=== PATIENT | male | born 1995 | race Caucasian/White ===

== ENCOUNTER 2023-02-24 16:48 | Emergency (ER) | payer OTHER ==
[2023-02-24 16:57] VITALS: BP 143/85; O2SAT 98
[2023-02-24] MEDS ORDERED: KETOROLAC 0.45% OPHTH DROPS EACHEYE ONE (17:05)
--- NOTE | 2023-02-24 17:06 | ED Physician Documentation ---
PD HPI OPHTHO - Stated complaint Stated Complaint: BLURRY VISION/BURNING EYES - Chief complaint Chief Complaint: Heent - History obtained from History obtained from: Patient - Additional information Additional information: He developed right eye pain 3 days ago and redness. Went to urgent care and was subsequently sent over to Dr. Chandler, the nursing informatics clinical analyst in [place] and diagnosed with viral conjunctivitis. Pain is more severe and he is losing sleep because of it. His vision is not affected. He is having clear drainage. Not a contact lens wear. PD PAST MEDICAL HISTORY - Past Medical History Past Medical History: No Cardiovascular: None Respiratory: None Neuro: None Endocrine/Autoimmune: None GI: None : None HEENT: None Psych: None Musculoskeletal: None Derm: None - Past Surgical History Past Surgical History: No - Present Medications Home Medications: Ambulatory Orders Medication Instructions Recorded Confirmed HYDROcod/ACETAM 5/325 [Florien 5/325] 1 - 2 tablet PO Q6H PRN 02/24/23 02/24/23 Ofloxacin 0.3% Ophth Drops 1 drops EACHEYE Q4H 02/24/23 02/24/23 [Ocuflox 0.3% Ophth Drops] - Allergies Allergies/Adverse Reactions: Allergies Allergy/AdvReac Type Severity Reaction Status Date / Time No Known Drug Allergies Allergy Verified 02/24/23 16:53 - Social History Does the pt smoke?: No Smoking Status: Never smoker Does the pt drink ETOH?: No Does the pt have substance abuse?: No - Immunizations Immunizations are current?: Yes - POLST Patient has POLST: No PD ED PE NORMAL - Vitals Vital signs reviewed: Yes - General General: Alert and oriented X 3, No acute distress - HEENT HEENT: PERRL, EOMI, Other (Significant bilateral conjunctivitis without purulent drainage. Anterior chambers are clear) - Neck Neck: Supple, no meningeal sign, No bony TTP - Neuro Neuro: Alert and oriented X 3, Normal speech Results - Vitals Vitals: Vital Signs - 24 hr 02/24/23 16:53 Temperature 36.5 C Heart Rate 67 Respiratory 16 Rate Blood Pressure 143/85 H O2 Saturation 98 Oxygen O2 Source Room air PD Medical Decision Making - ED course ED course: We do not have an appropriate topical agents for viral conjunctivitis in the hospital and all the pharmacies are closed. He was advised that he can buy ketotifen [id number]. Departure - Departure Disposition: 01 Home, Self Care Clinical Impression: Viral conjunctivitis of both eyes Condition: Good Record reviewed to determine appropriate education?: Yes Instructions: ED Conjunctivitis Nonspecific Comments: Go to the pharmacy and buy an [id number] eyedrop with ketotifen in it and use it per package instructions. Forms: PCP List
[2023-02-24] MEDS ORDERED: HYDROcod/ACET 5/325 Prepack 4 PO STA (17:28)
== END 2023-02-24 17:42 | disposition home or self-care (01) ==
LOC: ED 16:48
DX: B30.9 Viral conjunctivitis, unspecified (principal)
CPT/HCPCS: 99282; 99283; A9270